=== PATIENT | male | born 1950 | race Caucasian/White ===

== ENCOUNTER 2018-09-13 13:00 | Inpatient (IN) | payer OTHER ==
[~2018-09-13] VITALS: Ht 170.2 cm; Wt 99.8 kg
[2018-09-14] MEDS ORDERED: LIPITOR20 MG PO (09:05)
[2018-09-14] MEDS ORDERED: HYZAAR 50-12.51 EACH PO (09:05)
[2018-09-20] MEDS ORDERED: GABAPENTIN800 MG PO (10:12)
[2018-09-20] MEDS ORDERED: DOCUSATE SODIU100 MG PO (10:12)
[2018-09-20] MEDS ORDERED: AMOX-CLAV 875-1 EACH PO (10:13)
[2018-09-20] MEDS ORDERED: CLONAZEPAM1 MG PO (10:13)
[2018-09-20] MEDS ORDERED: PERCOCET 5-3251 EACH PO (10:13)
== END 2018-09-20 17:56 | disposition home or self-care (01) | DRG 460 ==
LOC: SURH 09-19 08:36 → O/R 09-19 08:36 → SURH 09-19 12:30
PROVIDERS: Orthopaedic Surgery Orthopaedic Surgery of the Spine
PROC: 0SG10AJ Fusion of 2 or more Lumbar Vertebral Joints with Interbody Fusion Device, Posterior Approach, Anterior Column, Open Approach (ICD-10-PCS; 2018-09-19)
PROC: 0ST20ZZ Resection of Lumbar Vertebral Disc, Open Approach (ICD-10-PCS; 2018-09-19)
PROC: 07DS3ZZ Extraction of Vertebral Bone Marrow, Percutaneous Approach (ICD-10-PCS; 2018-09-19)
PROC: 0SG10A0 Fusion of 2 or more Lumbar Vertebral Joints with Interbody Fusion Device, Anterior Approach, Anterior Column, Open Approach (ICD-10-PCS; principal; 2018-09-19 12:30)
DX: M43.16 Spondylolisthesis, lumbar region (principal); M51.36 Other intervertebral disc degeneration, lumbar region; I10 Essential (primary) hypertension